=== PATIENT | female | born 1965 | race Asian ===

== ENCOUNTER 2024-04-26 15:51 | Emergency (ER) | payer OTHER, BC ==
[2024-04-26 15:56] VITALS: BP 144/86; PULSE 65; RESP 18; TEMP 98; BMI 27.9
== END 2024-04-26 16:19 | disposition home or self-care (01) ==
LOC: JERFT 15:51
PROC: 0HQFXZZ Repair Right Hand Skin, External Approach (ICD-10-PCS; principal; 2024-04-26)
DX: S61.011A Laceration without foreign body of right thumb without damage to nail, initial encounter (principal); W26.0XXA Contact with knife, initial encounter
CPT/HCPCS: 99283-25

== ENCOUNTER 2024-10-31 04:22 | Day surgery (SDC) | payer BC ==
[2024-10-24 09:55] VITALS: BMI 26.4
[2024-10-31 09:56] VITALS: TEMP 97
[2024-10-31 11:31] VITALS: BP 113/60; PULSE 57
[2024-10-31 11:33] VITALS: RESP 16
== END 2024-11-01 10:30 | disposition home or self-care (01) ==
LOC: JASU-ENDO 04:22
PROVIDERS: ATTEND Internal Medicine Gastroenterology
PROC: 0DJD8ZZ Inspection of Lower Intestinal Tract, Via Natural or Artificial Opening Endoscopic (ICD-10-PCS; principal; 2024-10-31 09:00)
DX: Z12.11 Encounter for screening for malignant neoplasm of colon (principal); Z86.0100 Personal history of colon polyps, unspecified